=== PATIENT | male | born 1975 | race Caucasian/White ===

== ENCOUNTER 2017-09-30 19:02 | Emergency (ER) | payer OTHER | END 2017-09-30 20:58 | disposition home or self-care (01) | LOC: D.ER 19:02 | DX: R07.89 Other chest pain (principal); R07.81 Pleurodynia; F17.200 Nicotine dependence, unspecified, uncomplicated ==

== ENCOUNTER → 2018-07-27 10:19 | Outpatient (CLI) | payer OTHER ==
[~2018-07-27 10:19] MED LIST: IBUPROFEN800 MG PO; KEFLEX500 MG PO; PERCOCET 7.5/321 TAB PO; PROZAC20 MG PO; RED YEAST RICE600 MG PO; VISTARIL50 MG PO
[2018-08-16 08:41] VITALS: BMI 34.9
== END | disposition home or self-care (01) ==
LOC: D.RAD 10:19
DX: M25.511 Pain in right shoulder (principal)

== ENCOUNTER 2018-08-16 07:40 | Day surgery (SDC) | payer OTHER ==
[~2018-08-16] VITALS: Ht 175.3 cm; Wt 107.0 kg
--- NOTE | ~2018-08-16 | OP ---
PATIENT NAME: FELY TAVERAS MEDICAL RECORD: [id number] :75 LOCATION:[facility] ADMISSION DATE: SURGEON: GISELLA PACE, DATE OF OPERATION: 08/16/2018 PROCEDURES PERFORMED: Right shoulder arthroscopy with biceps tenodesis, subacromial decompression, distal clavicle excision, labral debridement. PREOPERATIVE DIAGNOSES: Right shoulder pain, subacromial impingement, AC joint arthritis, and SLAP tear. POSTOPERATIVE DIAGNOSES: Right shoulder pain, subacromial impingement, AC joint arthritis, and SLAP tear. INDICATIONS: Mr. Taveras is a 42-year-old male, who presented to my office a few months ago, had been dealing with right shoulder pain for quite some time, reaching back and doing anything overhead and lifting caused pain. He was tired of dealing with the pain and got an MRI, which was read as AC joint arthritis and type 2 acromion, but did not demonstrate a SLAP tear. However, on exam, he had a positive Huntington's test and Speed's and Yergason's indicating a SLAP tear. Due to these findings, I informed him that we would do the scope and take a very close look, we need to do a subacromial decompression and distal clavicle excision to alleviate those symptoms and take a close look at the biceps and likely do a biceps tenodesis if that was the case, also the patient's rotator cuff. He was okay with that. He is aware of the risks and benefits including infection, bleeding, damage to nerve and vessels, need for further surgery and consented to the procedure. DESCRIPTION OF THE PROCEDURE: The patient received a block in the preoperative area by anesthesia and taken to the operative suite, laid in the left lateral decubitus position with axillary roll. The right upper extremity was prepped and draped in sterile fashion. Once this was done, a time-out was performed, everyone was in agreement with the correct side, site, patient, and procedure. He received 900 mg of clindamycin preoperatively. Once time-out had been performed, the procedure began first with inflating the joint itself with 60 mL of normal saline and then the posterior portal was established with an 11-blade scalpel. The trocar was entered into the joint. The joint was viewed. The anterior portal was then established with an 18-gauge spinal needle and 11-blade scalpel. The labrum was inspected and seemed to indeed have a type 2 SLAP tear and was anteriorly somewhat off of the glenoid. Due to this, a biceps tenotomy was done at that time. The rotator cuff was inspected as well and no tears were seen on the articular side. The labrum was debrided at that point as well. Then, the scope was taken into the subacromial space. There was quite a lot of inflammation there, inflamed tissue and bursa, and this was debrided with a shaver and then a burner. The distal and lateral acromion was then seen to have a large spur on it. This was removed using a bur. The AC joint was also exposed and again seen to have very little joint space in between the clavicle and the acromion, and this was opened up with a bur and a shaver, opened up to 7 mm. The rotator cuff was then inspected thoroughly on the bursal side and no tears were seen in it. The scope was then removed and then attention was drawn to the anterior humerus and small incision was made just distal to the pec insertion. Careful dissection was made down the biceps tendon that had been tenotomized. It was pulled out through the wound, whipstitched and placed into the humerus using a unicortical button and this was tied down. Sutures were in through the bicep tendon and tied down again. The excess suture and tendon was OPERATIVE REPORT [id number] FELY TAVERAS then cut. This site was thoroughly irrigated and then closed with 2-0 Vicryl in inverted interrupted fashion and 4-0 Monocryl was ran on the skin in each of the portal sites. The lateral portal site had been established. We went to the subacromial space with an 11-blade scalpel. These were all closed with a 4-0 Monocryl in inverted interrupted fashion. Dermabond, Telfa, and Tegaderm were placed on the incision sites. The patient was awakened and taken to recovery in stable condition. COMPLICATIONS: None. BLOOD LOSS: Minimal. TRANSINT:[id number] Voice Confirmation ID: [id number] DOCUMENT ID: [id number] GISELLA PACE DO at 1613 CC: [id number] DICTATION DATE: 08/16/18 1247 BARREL ASSEMBLY INSPECTOR: 08/16/18 1314 [facility] [address] [facility], [facility]
[~2018-08-16 07:40] MED LIST changes: -KEFLEX500 MG PO; -PERCOCET 7.5/321 TAB PO; -VISTARIL50 MG PO
[2018-08-16 08:41] VITALS: BP 122/81; Ht 175.3 cm; Wt 107.0 kg
[2018-08-16] MEDS ORDERED: KEFLEX500 MG PO (12:40)
[2018-08-16] MEDS ORDERED: PERCOCET 7.5/321 TAB PO (12:40)
[2018-08-16] MEDS ORDERED: VISTARIL50 MG PO (12:40)
== END 2018-08-16 14:30 | disposition home or self-care (01) ==
LOC: D.OPS 07:40 → D.PAN 12:00 → D.OPS 12:00
DX: M75.41 Impingement syndrome of right shoulder (principal); M13.811 Other specified arthritis, right shoulder; S43.431A Superior glenoid labrum lesion of right shoulder, initial encounter; X58.XXXA Exposure to other specified factors, initial encounter; Z01.812 Encounter for preprocedural laboratory examination

== ENCOUNTER 2018-09-07 12:03 | Emergency (ER) | payer OTHER ==
[~2018-09-07] VITALS: Ht 175.3 cm; Wt 109.1 kg
[~2018-09-07 12:03] MED LIST changes: +KEFLEX500 MG PO; +PERCOCET 7.5/321 TAB PO; +VISTARIL50 MG PO
[2018-09-07 12:17] VITALS: Ht 175.3 cm; Wt 109.1 kg
[2018-09-07 13:39] LABS: BASOPHILS 0.1 % (0-2); EOSINOPHILS 1.6 % (0-7); HEMATOCRIT 46.7 % (42.0-54.0); HEMOGLOBIN 16.1 g/dL (13.5-17.5); IMMATURE GRANULOCYTES 0.2 % (0-5); LYMPHOCYTES 18.8 % (15-50); MCH 31.6 pg (26.0-34.0); MCHC 34.5 g/dL (31.0-37.0); MCV 91.7 fL (80.0-100.0); MEAN PLATELET VOLUME 10.3 fL (7.4-10.4); NEUTROPHILS 74.3 % (40-80); PLATELET COUNT 246 10x3/uL (130-400); RBC 5.09 10x6/uL (4.20-6.10); RDW 12.6 % (11.5-14.5); WBC 9.7 10x3/uL (4.8-10.8)
[2018-09-07 13:52] LABS: ALKALINE PHOSPHATASE 93 U/L (46-116); ALT (SGPT) 49 U/L (10-68); BILIRUBIN - TOTAL 0.49 mg/dL (0.2-1.3); CALC OSMOLALITY 279 mosm/kg (275-300); CALCIUM 9.2 mg/dL (8.5-10.1); CARBON DIOXIDE 23.9 mmol/L (21.0-32.0); CHLORIDE - SERUM 103 mmol/L (98-107); GLUCOSE 96 mg/dL (74-106); POTASSIUM - SERUM 4.2 mmol/L (3.5-5.1); PROTEIN - SERUM 7.8 g/dL (6.4-8.2); SODIUM 138 mmol/L (136-145); UREA NITROGEN 23 mg/dL (7-18); eGFR NON AFRICAN AMERICAN 87 mL/min (90-120)
[2018-09-07 13:56] LABS: TROPONIN-I < 0.017 ng/mL (0.000-0.060)
[2018-09-07 17:03] VITALS: BP 124/88
== END 2018-09-07 17:04 | disposition home or self-care (01) ==
LOC: D.ER 12:03
PROVIDERS: Emergency Medicine
DX: R55 Syncope and collapse (principal); E86.0 Dehydration

== ENCOUNTER → 2018-12-26 10:23 | Outpatient (CLI) | payer OTHER ==
[2018-09-07 12:17] VITALS: BMI 35.5
== END | disposition home or self-care (01) ==
LOC: D.CT 10:23
DX: R22.1 Localized swelling, mass and lump, neck (principal)

== ENCOUNTER 2019-04-19 20:42 | Emergency (ER) | payer OTHER ==
[~2019-04-19] VITALS: Ht 175.3 cm; Wt 109.1 kg
[2019-04-19 20:47] VITALS: Ht 175.3 cm; Wt 109.1 kg
[2019-04-19] MEDS ORDERED: VIBRAMYCIN 100100 MG PO (22:09)
[2019-04-19 22:35] VITALS: BP 104/68
== END 2019-04-19 22:35 | disposition home or self-care (01) ==
LOC: D.ER 20:42
DX: S51.011A Laceration without foreign body of right elbow, initial encounter (principal); W25.XXXA Contact with sharp glass, initial encounter; Y93.89 Activity, other specified; Y92.89 Other specified places as the place of occurrence of the external cause

== ENCOUNTER 2019-06-01 11:12 | Emergency (ER) | payer OTHER ==
[~2019-06-01] VITALS: Ht 175.3 cm; Wt 106.8 kg
[~2019-06-01 11:12] MED LIST changes: +VIBRAMYCIN 100100 MG PO
[2019-06-01 11:21] VITALS: Ht 175.3 cm; Wt 106.8 kg
[2019-06-01] MEDS ORDERED: TORADOL10 MG PO (13:28)
[2019-06-01 16:00] VITALS: BP 122/59
== END 2019-06-01 16:00 | disposition home or self-care (01) ==
LOC: D.ER 11:12
DX: S99.912A Unspecified injury of left ankle, initial encounter (principal); X58.XXXA Exposure to other specified factors, initial encounter; Y93.89 Activity, other specified; Y92.89 Other specified places as the place of occurrence of the external cause; S99.922A Unspecified injury of left foot, initial encounter

== ENCOUNTER → 2019-08-15 13:36 | Outpatient (CLI) | payer OTHER ==
[2019-06-01 11:21] VITALS: BMI 34.7
[~2019-08-15 13:36] MED LIST changes: +TORADOL10 MG PO
--- NOTE | 2019-08-18 12:52 | ST ---
PATIENT:FELY LAZAR MEDICAL RECORD: [id number] SEX: M LOCATION:[facility] ORDER #: ADMISSION DATE: 08/15/19 AGE OF PATIENT: 43 REFERRING PHYSICIAN: INTERPRETING PHYSICIAN: DAMASO ADAN MD DATE OF SERVICE: 08/15/2019 Baseline ECG is normal. Exercised for 10 minutes on David protocol. Maximum heart rate 170 beats per minute, greater than 85% maximum predicted. No ECG changes for ischemia. No symptoms of ischemia. Normal blood pressure response to exercise. No arrhythmias noted. Good exercise tolerance for age. TRANSINT:[id number] Voice Confirmation ID: [id number] DOCUMENT ID: [id number] DAMASO ADAN MD at 1252 CC: [id number] DICTATION DATE: 08/17/19 1345 SOFTWARE PROGRAM MANAGER: 08/17/19 1443 DEP CLI 08/15/[address] [id number]
== END | disposition home or self-care (01) ==
LOC: D.HCCARDIO 13:36
PROVIDERS: ATTEND Internal Medicine Interventional Cardiology
DX: R07.9 Chest pain, unspecified (principal)

== ENCOUNTER → 2019-11-24 15:42 | Outpatient (CLI) | payer OTHER ==
[2019-06-01 11:21] VITALS: BMI 34.7
== END | disposition home or self-care (01) ==
LOC: D.LABREF 15:42
PROVIDERS: ATTEND Surgery
DX: D17.1 Benign lipomatous neoplasm of skin and subcutaneous tissue of trunk (principal)